=== PATIENT | female | born 1955 | race American Indian/Alaskan Native ===

== ENCOUNTER 2021-01-25 16:18 | Emergency (ER) | payer MEDICARE ==
[2021-01-25 16:29] VITALS: BP 105/60
[2021-01-25] MEDS ORDERED: ASPIRIN 325 MG TAB PO ONE (16:29)
[2021-01-25 17:07] LABS: Basophils # (Auto) 0.1 K/mm3 (0.0-0.1); Basophils % (Auto) 2.3 % (0.0-1.8); Eosinophils % (Auto) 1.7 % (0.0-4.3); Hematocrit 34.8 % (30.3-42.9); Hemoglobin 11.7 gm/dl (10.1-14.3); Lymphocytes # (Auto) 0.8 K/mm3 (1.2-5.4); Lymphocytes % (Auto) 28.5 % (13.4-35.0); Mean Corpuscular HGB Conc 34 % (30-34); Mean Corpuscular Volume 83 fl (79-97); Monocytes # (Auto) 0.2 K/mm3 (0.0-0.8); Monocytes % (Auto) 8.3 % (0.0-7.3); Platelet Count 172 K/mm3 (140-440); Red Blood Count 4.17 M/mm3 (3.65-5.03); Red Cell Distribution Width 13.2 % (13.2-15.2)
[2021-01-25 17:31] LABS: Alanine Aminotransferase 13 units/L (7-56); BUN/Creatinine Ratio 14; Blood Urea Nitrogen 18 mg/dL (7-17); Calcium 9.5 mg/dL (8.4-10.2); Hemolysis Index 4
[2021-01-25] MEDS ORDERED: SODIUM CHLORIDE 0.9% 1000 ML 1,000 ML IV ONE (22:36)
--- NOTE | 2021-01-25 22:46 | Emergency Department Report ---
ED Chest Pain HPI - General Chief Complaint: Chest Pain Stated Complaint: CHEST PAIN / SOB Time Seen by Provider: 01/25/21 22:35 Source: patient Mode of arrival: Ambulatory Limitations: No Limitations - History of Present Illness Initial Comments: This is a 65-year-old -[place] female presents to the emergency department with complaint of a 4-month history of intermittent left upper quadrant abdominal and left lower rib/chest pain. It is associated with some shortness of breath. Currently her pain is 4 out of 10 in intensity. No known aggravating or alleviating factors. She has a past medical history of insulin- dependent diabetes for which she says she is compliant. However she admits to not taking her medication yet today. She denies any tobacco, illicit drug use, or alcohol abuse or dependence. No family history of early cardiac events or WI. Patient denies any recent travel, immobility, sick contacts at home. She denies any associated nausea, vomiting, back pain, lower extremity swelling, diaphoresis. She has not taken anything for symptoms recently. She follows with Dr. Amos Correia at [facility] for primary care. Patient says that she has been evaluated by a organ assembler, Dr. Chaney, and thinks that she had a negative stress test back in October. - Related Data Home Medications Medication Instructions Recorded Confirmed Last Taken Insulin Aspart (Nf) [Novolog 20 unit SUB-Q BID 08/21/13 08/23/13 08/22/13 Flexpen] Insulin Glargine,Hum.rec.anlog 20 unit SUB-Q QHS 08/21/13 08/23/13 08/21/13 [Lantus Solostar] Previous Rx's Medication Instructions Recorded Last Taken Type Azithromycin [Zithromax Z-JAYNE] 250 mg PO DAILY #6 tablet 08/21/13 08/22/13 Rx Ibuprofen [Motrin] 800 mg PO TID PRN #15 tablet 08/21/13 08/22/13 Rx Prednisone 20 mg PO QDAY #5 tablet 08/21/13 08/22/13 Rx Promethazine /Codeine 5 ml PO Q6H PRN #60 ml 08/21/13 08/22/13 Rx [Phenergan/Codeine 6.25-10 mg/5 ml] Allergies Allergy/AdvReac Type Severity Reaction Status Date / Time acetaminophen [From Tylenol] Allergy Rash Verified 08/21/13 09:09 Heart Score - HEART Score History: Slightly suspicious EKG: Normal Age: 45-65 Risk factors: 1-2 risk factors Troponin: < normal limit HEART Score: 2 - EKG Read Time Time EKG Completed: 16:33 EKG Read Time: 16:38 ED Review of Systems ROS: Stated complaint: CHEST PAIN / SOB Other details as noted in HPI Comment: All other systems reviewed and negative Constitutional: denies: chills, fever Eyes: denies: eye pain, vision change ENT: denies: ear pain, throat pain Respiratory: shortness of breath. denies: cough Cardiovascular: chest pain. denies: palpitations Gastrointestinal: abdominal pain. denies: nausea, vomiting Genitourinary: denies: dysuria, discharge Musculoskeletal: denies: back pain, arthralgia Skin: denies: rash, lesions ED Past Medical Hx - Past Medical History Hx Diabetes: Yes - Surgical History Additional Surgical History: BREAST SURGERY - Social History Smoking Status: Never Smoker Substance Use Type: None - Medications Home Medications: Home Medications Medication Instructions Recorded Confirmed Last Taken Type Azithromycin [Zithromax Z-JAYNE] 250 mg PO DAILY #6 tablet 08/21/13 08/23/13 08/22/13 Rx Ibuprofen [Motrin] 800 mg PO TID PRN #15 tablet 08/21/13 08/23/13 08/22/13 Rx Insulin Aspart (Nf) [Novolog 20 unit SUB-Q BID 08/21/13 08/23/13 08/22/13 History Flexpen] Insulin Glargine,Hum.rec.anlog 20 unit SUB-Q QHS 08/21/13 08/23/13 08/21/13 History [Lantus Solostar] Prednisone 20 mg PO QDAY #5 tablet 08/21/13 08/23/13 08/22/13 Rx Promethazine /Codeine 5 ml PO Q6H PRN #60 ml 08/21/13 08/23/13 08/22/13 Rx [Phenergan/Codeine 6.25-10 mg/5 ml] ED Physical Exam - General Limitations: No Limitations - Other Other exam information: GENERAL: The patient is well-developed well-nourished. HENT: Normocephalic. Atraumatic. Patient has moist mucous membranes. EYES: Extraocular motions are intact. Pupils equal reactive to light bi laterally. NECK: Supple. Trachea is midline. CHEST/LUNGS: Clear to auscultation. There is no respiratory distress noted. There is some reproducible left lower chest/rib tenderness to palpation. No crepitus or deformity. HEART/CARDIOVASCULAR: Regular. There is no tachycardia. There is no murmur. ABDOMEN: Abdomen is soft. Mild left upper quadrant abdominal tenderness to palpation. No guarding. Patient has normal bowel sounds. SKIN: Skin is warm and dry. NEURO: The patient is awake, alert, and oriented. The patient is cooperative. The patient has no focal neurologic deficits. Normal speech. MUSCULOSKELETAL: There is no tenderness or deformity. There is no limitation range of motion. ED Course Vital Signs 01/25/21 16:28 Temperature 98.0 F Pulse Rate 85 Respiratory 18 Rate Blood Pressure 105/60 O2 Sat by Pulse 96 Oximetry - Reevaluation(s) Reevaluation #1: 01/25/21 23:09 Patient is refusing the IV fluid resuscitation, insulin, abdominal x-ray imaging. She says that she just wants to go home and drink water and take her own insulin. She is willing to wait until the results of her troponin return as it was already drawn. JACK score - Jack Score Age > 65: (0) No Aspirin use within the Past 7 Days: (0) No 3 or more CAD Risk Factors: (0) No 2 or more Angina events in past 24 hrs: (1) Yes (If pain is considered angina) Known CAD with more than 50% Stenosis: (0) No Elevated Cardiac Markers: (0) No ST Deviation Greater than 0.5mm: (0) No JACK Score: 1 ED Medical Decision Making - Lab Data Result diagrams: 01/25/21 16:54 01/25/21 16:54 Lab Results 01/25/21 01/25/21 01/25/21 Range/Units 16:54 16:54 19:35 WBC 2.7 L (4.5-11.0) K/mm3 RBC 4.17 (3.65-5.03) M/mm3 Hgb 11.7 (10.1-14.3) gm/dl Hct 34.8 (30.3-42.9) % MCV 83 (79-97) fl MCH 28 (28-32) pg MCHC 34 (30-34) % RDW 13.2 (13.2-15.2) % Plt Count 172 (140-440) K/mm3 Lymph % (Auto) 28.5 (13.4-35.0) % [place] % (Auto) 8.3 H (0.0-7.3) % Eos % (Auto) 1.7 (0.0-4.3) % Baso % (Auto) 2.3 H (0.0-1.8) % Lymph # (Auto) 0.8 L (1.2-5.4) K/mm3 [place] # (Auto) 0.2 (0.0-0.8) K/mm3 Eos # (Auto) 0.0 (0.0-0.4) K/mm3 Baso # (Auto) 0.1 (0.0-0.1) K/mm3 Seg Neutrophils % 59.2 (40.0-70.0) % Seg Neutrophils # 1.6 L (1.8-7.7) K/mm3 Sodium 134 L (137-145) mmol/L Potassium 5.0 (3.6-5.0) mmol/L Chloride 99.3 (98-107) mmol/L Carbon Dioxide 25 (22-30) mmol/L Anion Gap 15 mmol/L BUN 18 H (7-17) mg/dL Creatinine 1.3 H (0.6-1.2) mg/dL Estimated GFR 50 ml/min BUN/Creatinine Ratio 14 % Glucose 528 H* (65-100) mg/dL POC Glucose (70-105) mg/dL Calcium 9.5 (8.4-10.2) mg/dL Total Bilirubin < 0.20 (0.1-1.2) mg/dL AST 12 (5-40) units/L ALT 13 (7-56) units/L Alkaline Phosphatase 118 (35-129) units/L Troponin T < 0.010 < 0.010 (0.00-0.029) ng/mL Total Protein 7.0 (6.3-8.2) g/dL Albumin 4.0 (3.9-5) g/dL Albumin/Globulin Ratio 1.3 % 01/25/21 01/25/21 Range/Units 22:46 22:48 WBC (4.5-11.0) K/mm3 RBC (3.65-5.03) M/mm3 Hgb (10.1-14.3) gm/dl Hct (30.3-42.9) % MCV (79-97) fl MCH (28-32) pg MCHC (30-34) % RDW (13.2-15.2) % Plt Count (140-440) K/mm3 Lymph % (Auto) (13.4-35.0) % [place] % (Auto) (0.0-7.3) % Eos % (Auto) (0.0-4.3) % Baso % (Auto) (0.0-1.8) % Lymph # (Auto) (1.2-5.4) K/mm3 [place] # (Auto) (0.0-0.8) K/mm3 Eos # (Auto) (0.0-0.4) K/mm3 Baso # (Auto) (0.0-0.1) K/mm3 Seg Neutrophils % (40.0-70.0) % Seg Neutrophils # (1.8-7.7) K/mm3 Sodium (137-145) mmol/L Potassium (3.6-5.0) mmol/L Chloride (98-107) mmol/L Carbon Dioxide (22-30) mmol/L Anion Gap mmol/L BUN (7-17) mg/dL Creatinine (0.6-1.2) mg/dL Estimated GFR ml/min BUN/Creatinine Ratio % Glucose (65-100) mg/dL POC Glucose 414 H (70-105) mg/dL Calcium (8.4-10.2) mg/dL Total Bilirubin (0.1-1.2) mg/dL AST (5-40) units/L ALT (7-56) units/L Alkaline Phosphatase (35-129) units/L Troponin T < 0.010 (0.00-0.029) ng/mL Total Protein (6.3-8.2) g/dL Albumin (3.9-5) g/dL Albumin/Globulin Ratio % - EKG Data -: EKG Interpreted by Or EKG shows normal: sinus rhythm, axis, intervals (Prolonged UT interval), QRS complexes (Low voltage), ST-T waves Rate: normal - EKG Data When compared to previous EKG there are: no significant change (Other than current prolonged UT interval) Interpretation: unchanged when compared t (08/22/2013) - Radiology Data Radiology results: image reviewed interpreted by me: Chest x-ray does not show any acute process. There are no pleural effusions, obvious pneumonia and there is no pneumothorax. No widened mediastinum. - Medical Decision Making This patient presents with a 4-month history of intermittent left-sided lower chest and upper abdominal pain. On examination there is some reproducible tenderness to palpation in these areas without crepitus or deformity. EKG did not have any morphology consistent with ST elevation myocardial infarction. Chest x-ray does not show any pneumonia, pleural effusions, pneumothorax, widened mediastinum, or any other acute process. There is some gas seen in the region of the stomach. Patient's labs shows mild leukopenia, some mild renal insufficiency with a GFR of 50, and hyperglycemia with a blood sugar of about 500 without evidence of diabetic ketoacidosis as there is no elevation in the anion gap. Patient had her work-up started through triage and has been in the emergency department for about 5 or 6 hours prior to the chart being presented to me. After my H&P, I told the patient that I was going to place an IV, give IV fluid, give insulin for the hyperglycemia, give pain control, and order an x-ray of the abdomen. Patient refused any further treatment. She did agree to stay for the results of her third troponin as it already been drawn. Patient says that she is going to go home, drink water, take her own insulin, and do Accu-Cheks. Patient is awake, alert alert and oriented and has a normal decision-making capacity to refuse the treatment. As the patient's cardiac work-up has been negative, she has not an diabetic ketoacidosis, and vital signs have been reassuring, I did not make the patient sign out AGAINST MEDICAL ADVICE. She does understand that she still has at least moderate hyperglycemia and that if she does not control it that it could lead to worsening hyperglycemia and DKA. Patient has good outpatient follow-up with primary care and cardiology. She had a negative stress test, allegedly, about 3 months ago. She is low on the heart and JACK score. She does not have any risk factors for thromboembolic disease. For all these reasons the patient was discharged home for outpatient follow-up. She will return to the ER with any worsening of her symptoms or with any acute distress. Critical Care Time: No Critical care attestation.: If time is entered above; I have spent that time in minutes in the direct care of this critically ill patient, excluding procedure time. ED Disposition Clinical Impression: Intermittent left-sided chest pain, Left upper quadrant abdominal pain, Hyperglycemia Disposition: TO HOME OR SELFCARE Is pt being admited?: No Condition: Stable Instructions: Abdominal Pain, Adult, Nonspecific Chest Pain, Adult, Hyperglycemia Additional Instructions: Please follow-up with your primary care physician and organ assembler in the next few days. Return to the emergency department if you change your mind about further treatment including IV fluid, insulin. Please take your medications as previously prescribed. Try to stay away from foods that are high in sugar, carbohydrates and starches. Keep a blood sugar log. Return to the emergency department with any worsening of your symptoms, new or concerning symptoms not addressed during this current emergency department visit, or with any acute distress. Referrals: AMOS CORREIA MD [Referring] - 2-3 Days Leather Sprayer, Your [Other] - 2-3 Days Time of Disposition: 23:31
[2021-01-25] MEDS ORDERED: INSULIN REGULAR, HUMAN 100 UNITS/1 ML IV ONE (22:47)
--- NOTE | 2021-01-26 17:59 | Electrocardiograph Report ---
[facility] Test Date: 2021-01-25 Test Time: 16:33:20 Pat Name: KAYLIE ZELAYA Department: Room: Gender: F Cupola Liner: ASUNCION : 1955 Requested By: DAY LEYVA Order Number: [id number] Reading MD: Ken Kerr Measurements Intervals [place] Rate: 78 P: 71 AL: 214 QRS: 34 QRSD: 76 T: 60 QT: 363 QTc: 413 Interpretive Statements Sinus rhythm Borderline prolonged AL interval Low voltage, precordial leads No previous ECG available for comparison Electronically Signed On 01-26-2021 17:59:21 EDT by Ken Kerr
--- NOTE | 2021-02-05 17:40 | XRay Report ---
CHEST 2 VIEWS INDICATION / CLINICAL INFORMATION: Chest pain. COMPARISON: 08/22/13 FINDINGS: SUPPORT DEVICES: None. HEART / MEDIASTINUM: No significant abnormality. LUNGS / PLEURA: No significant pulmonary or pleural abnormality. No pneumothorax. ADDITIONAL FINDINGS: Post thoracotomy changes on the right. IMPRESSION: 1. No acute findings. Signer Name: Luis Lucero MD Signed: 02/05/2021 5:35 PM Workstation Name: [id number]
== END 2021-01-25 23:35 | disposition home or self-care (01) ==
LOC: ED 16:18
DX: R07.89 Other chest pain (principal); R10.12 Left upper quadrant pain; E11.65 Type 2 diabetes mellitus with hyperglycemia; Z88.6 Allergy status to analgesic agent; Z79.4 Long term (current) use of insulin; Z79.899 Other long term (current) drug therapy
CPT/HCPCS: 36415; 71046; 80053; 82962; 84484; 85025; 93005; 99284; J7030; J1815